=== PATIENT | female | born 1955 | race Caucasian/White ===

== ENCOUNTER 2020-11-12 10:10 | Emergency (ER) | payer SELFPAY ==
--- OUTSIDE RECORDS SUMMARY | 2020-11-12 10:13 | XMS REPORT | Continuity of Care Document ---
:1955 Author Organization [facility] t Address [address] [place] [address] Dr. Jerome. [address] [place] [address] Care Team Providers Name Role Phone Michelle Carpenter MD Primary Care Physician Alexi GONZALEZ B. Attending Clinician Jay Jay GONZALEZ RRenato Attending Clinician Carline ZUÑIGA Attending Clinician Unavailable Problems Condition Condition Condition Status Onset Resolution Last Treating Co mments Source Name Details Category Date Date Treatment Clinician Date Internal Internal Disease Active [place] derangemen derangemen 2-24 Me thodi t of left t of left 00:00: st shoulder shoulder 00 Adhesive Adhesive Disease Active [place] capsulitis capsulitis 2-24 Me thodi of left of left 00:00: st shoulder shoulder 00 Essential Essential Disease Active [place] ston hypertensi hypertensi 3-03 Me thodi on on 00:00: st 00 Hypertroph Hypertroph Disease Active 2017- [place] ic ic 1-10 [facility] cardiomyop cardiomyop 00:00: st athy athy 00 Allergies, Adverse Reactions, Alerts This patient has no known allergies or adverse reactions. Family History Family Member Diagnosis Comments Start Date Stop Date Source Natural brother Hypertension [place] [facility] Natural father Aneurysm [facility] thodist Natural mother Hypertension [place] [facility] Social History Social Habit Start Date Stop Date Quantity Comments Source Sex Assigned At F [facility] ethodist Exposure to Not sure [place] Metho dist SARS-CoV-2 (event) Tobacco use and 2018-05-02 2018-05-[address] [facility] ethodist exposure 00:00:00 00:00:00 Alcohol intake 2018-05-02 2018-05-02 Current drinker [place] [facility] 00:00:00 00:00:00 of alcohol (finding) Smoking Status Start Date Stop Date Source Never smoker Juan Carlos Method[facility] t Medications Ordered Filled Start Stop Current Ordering Indication Dosage Frequency Signature Comments Components Source Medication Medication Date Date Medication? Clinician (SIG) Name Name naproxen 2020- Yes 500mg Q.5D Take 1 [place] (NAPROSYN) 11-05 tablet Method i 500 MG 00:00: 23:59 ([address] tablet 00 :00 total) by mouth 2 (two) times a day with meals for 30 days. traMADoL 2020- Yes acute pain 50mg Q6H Take 1 [place] (Ultram) 50 11-05-06 tablet (50 M ethodi mg tablet 00:00: 23:59 mg total) st 00 :00 by mouth every 6 (six) hours as needed for moderate pain for up to 10 days .acute pain. atenoloL Yes Essential TAKE 1 [place] (TENORMIN) - hypertensio TABLET BY [facility] 50 MG 00:00: n MOUTH st tablet 00 EVERY DAY atenoloL 2019-09- No Essential TAKE 1 [place] (TENORMIN) 009-24 hypertensio TABLET BY [facility] 50 MG 00:00: 00:[address] tablet 00 :00 EVERY DAY atenoloL 2019- No Essential TAKE 1 [place] (TENORMIN) 05-22 hypertensio TABLET BY [facility] 50 MG 00:00: 00:[address] tablet 00 :00 EVERY DAY atenoloL 2019- No Essential TAKE 1 [place] (TENORMIN) 04-22 hypertensio TABLET BY [facility] 50 MG 00:00: 00:[address] tablet 00 :00 EVERY DAY atenoloL 2020- No Essential TAKE 1 [place] (TENORMIN) 03-31 hypertensio TABLET BY [facility] 50 MG 00:00: 00:[address] tablet 00 :00 EVERY DAY atenoloL 2019- No Essential TAKE 1 [place] (TENORMIN) 6-23 07-20 hypertensio TABLET BY [facility] 50 MG 00:00: 00:[address] tablet 00 :00 EVERY DAY atenoloL 2019- 2020- No Essential TAKE 1 [place] (TENORMIN) 02-10 hypertensio TABLET BY [facility] 50 MG 00:00: 00:[address] tablet 00 :00 EVERY DAY atenoloL 2019- 2020- No Essential TAKE 1 [place] (TENORMIN) 01-17 hypertensio TABLET BY [facility] 50 MG 00:00: 00:[address] tablet 00 :00 EVERY DAY atenoloL 2020- No Essential TAKE 1 [place] (TENORMIN) 12-25- hypertensio TABLET BY [facility] 50 MG 00:00: 00:[address] tablet 00 :00 EVERY DAY atenoloL 2019- 2020- No Essential TAKE 1 [place] (TENORMIN) 18 04-15 hypertensio TABLET BY [facility] 50 MG 00:00: 00:[address] tablet 00 :00 EVERY DAY FLUoxetine 2019- Yes 20mg QD Take 20 mg [place] (PROzac) 20 3-03 by mouth Meth [place] MG capsule 14:31: daily. st 58 atorvastati Yes 20mg QD Take 20 mg [place] n (LIPITOR) 3-03 by mouth Meth willard 20 MG 14:31: daily. st tablet 25 atenoloL 2020- No Essential 50mg QD Take 1 [place] (TENORMIN) 11-05-18 hypertensio tablet (50 [facility] 50 MG 00:00: 00:00 n mg total) st tablet 00 :00 by mouth daily. traMADol 2020- No [place] (ULTRAM) 50 8-14 02-24 [facility] mg tablet 00:00: 00:00 st 00 :00 valsartan 2018-0 Yes QD every [place] (DIOVAN) 40 7-02 evening. Meth [place] MG tablet 00:00: st 00 omeprazole Yes 20mg QD Take 20 mg [place] (PriLOSEC) 6-30 by mouth Metho di 20 MG 00:00: daily. st capsule 00 escitalopra 2019- No [place] m (LEXAPRO) 1-03 03-03 [facility] 10 MG 00:00: 00:00 st tablet 00 :00 Vital Signs Vital Name Observation Time Observation Value Comments Source Systolic blood 2019-11-13 14:30:00 156 mm[Hg] [place] [facility] pressure Diastolic blood 2019-11-13 14:30:00 69 mm[Hg] [place] [facility] pressure Heart rate 2019-11-13 14:30:00 56 /min Juan Carlos Rodriguez Body height 2019-11-13 14:30:00 157.5 cm [place] [facility] Body weight 2019-11-13 14:30:00 80.287 kg Juan Carlos Rodriguez BMI 2019-11-13 14:30:00 32.37 kg/m2 Juan Carlos Rodriguez Procedures Procedure Date / Time Performing Clinician Source Performed MD ARTHROCENTESIS 2020-11-05 10:50:00 Brittany Truong [facility]odist ASPIR&/INJ MAJOR JT/BURSA W/O US TTE COMPLETE, W CONTRAST, 2019-11-28 15:10:20 Serv[facility] W DOPPLER ([id number]) ECG 12-LEAD 2019-11-13 14:28:58 Servando Bower Meth odist Plan of Care Planned Activity Planned Date Details Comments Source Future Scheduled 2020-04-12 INFLUENZA VACCINE [place] [facility] Test 00:00:00 [code = INFLUENZA VACCINE] Future Scheduled 2006 BREAST CANCER [facility] thodist Test 00:00:00 SCREENING [code = BREAST CANCER SCREENING] Future Scheduled 2006 COLONOSCOPY SCREENING [place] [facility] Test 00:00:00 [code = COLONOSCOPY SCREENING] Future Scheduled 2006 SHINGLES VACCINES [place] [facility] Test 00:00:00 (#1) [code = SHINGLES VACCINES (#1)] Future Scheduled 1977 Screening for [facility] thodist Test 00:00:00 malignant neoplasm of cervix (procedure) [code = 074583254] Future Scheduled 1974 Hepatitis C screening [place] [facility] Test 00:00:00 (procedure) [code = 911948538] Future Scheduled 1972 COVID-19 VACCINE (1 [place] [facility] Test 00:00:00 of 2) [code = COVID-19 VACCINE (1 of 2)] Encounters Start End Encounter Admission Attending Care Care Encounter Source Date/Time Date/Time Type Type Clinicians Facility Department ID 2020-11-05 2020-11-05 Outpatient BRITTANY TRUONG [facility] [id number] [place] 00:00:00 00:00:[address] 2019-11-28 2019-11-28 Outpatient [facility] [id number] [place] 00:00:00 00:00:[address] 2019-11-13 2019-11-13 [id number] [place] 00:00:00 00:00:00 SERVANDO [address] Results Test Description Test Time Test Comments Results Result Sourc e Comments Shoulder left 2020-10-14 Brittany Truong MD [facility] ton cortisone 4 11/05/2020 12:08 [facility]ism injection 10:50:00 PMShoulder left cortisone injectionPerformed by: Brittany Truong MDAuthorized by: Brittany Truong MD Consent given by: PatientSite marked: the procedure site was marked Timeout: prior to procedure the correct patient, procedure, and site was verified Indications: PainLocation: ShoulderSite: L subacromial bursaPrep: patient was prepped and draped in usual sterile fashion Ultrasound guided?: No Needle size (left): 25 G (25 gauge)Left side approach: AnterolateralLeft side medications: 6 mg betamethasone acetate & sodium phosphate 6 mg/mL; 1 mL lidocaine 10 mg/mL (1 %)Left aspirate amount (ml): 0Patient tolerance (left): Patient tolerated the procedure well with no immediate complications ECG 12 lead 2019-11-13 22:02:45 Test Item Value Reference Range Interpretation Comme nts Ventricular rate (test code = 253) 58 Atrial rate (test code = 255) 58 MD interval (test code = 266) 148 QRSD interval (test code = 260) 74 QT interval (test code = 264) 420 QTC interval (test code = 265) 412 P axis 1 (test code = 267) 68 QRS axis 1 (test code = 268) 44 T wave axis (test code = 270) 4 EKG impression (test code = 273) Sinus bradycardia-Low voltage QRS- Borderline ECG-No previous ECGs available- Juan Carlos Rodriguez
[2020-11-12 11:59] LABS: Protime INR 0.97
[2020-11-12 12:01] LABS: ALT/SGPT 30 U/L (12-78); AST/SGOT 14 U/L (15-37); Albumin 3.4 g/dL (3.4-5.0); Alkaline Phosphatase 121 U/L (45-117); BUN Blood Urea Nitrogen 21 mg/dL (7-18); Bicarbonate 30 mmol/L (21-32); Bilirubin Direct 0.1 mg/dL (0-0.2); Bilirubin Total 0.4 mg/dL (0.2-1.0); Glucose Level 119 mg/dL (74-106); Magnesium 1.9 mg/dL (1.8-2.4); NT PRO-BNP 76 pg/mL (<125); Potassium 4.8 mmol/L (3.5-5.1); Protein, Total 7.1 g/dL (6.4-8.2); Sodium Level 139 mmol/L (136-145); Troponin (Emerg Dept Use Only) < 0.02 ng/mL (0.0-0.045)
--- NOTE | 2020-11-12 12:45 | RAD REPORT ---
EXAM DESCRIPTION: RAD - Chest Single View - 11/12/2020 11:52 am CLINICAL HISTORY: weakness Chest pain. COMPARISON: Chest Pa And Lat (2 Views) dated 01/19/2016; CHEST PA AND LAT 2 VIEW dated 07/28/2012 FINDINGS: Portable technique limits examination quality. The lungs are grossly clear. The heart is upper limit of normal in size. No displaced fractures. IMPRESSION: No acute intrathoracic process suspected.
[2020-11-12 13:12] LABS: Hematocrit 39.9 % (36.0-45.0); RBC Red Blood Cell Count 4.49 M/uL (3.86-4.86)
[2020-11-12 13:13] LABS: Absolute Lymphocytes (CBC) 2.4 K/uL (0.7-4.9); Basophils % 0.8 % (0-1.3); MPV 9.9 fL (7.6-11.3)
--- NOTE | 2020-11-12 14:03 | ER ---
Nurse's Notes [facility] Name: Johanna Wolfe Age: 65 yrs Sex: Female : 1955 Arrival Date: 11/12/2020 Time: 10:12 Bed 6 Private MD: Misael Carpenter C Diagnosis: Weakness;Lightheaded;Bradycardia, unspecified-Related to Atenolol Presentation: 11/12 10:24 Chief complaint: Patient states: Was at Dr. Carpenter's office 45 min [employer] and had a near ll1 syncope event. States she got dizzy, pale, clammy. Feels better now, just not fully back to normal. Coronavirus screen: Client denies travel out of the [place] in the last 14 days. At this time, the client does not indicate any symptoms associated with coronavirus-19. Ebola Screen: Patient denies travel to an Ebola-affected area in the 21 days before illness onset. Initial Sepsis Screen: Does the patient meet any 2 criteria? No. Patient's initial sepsis screen is negative. Does the patient have a suspected source of infection? No. Patient's initial sepsis screen is negative. Risk Assessment: Do you want to hurt yourself or someone else? Patient reports no desire to harm self or others. Onset of symptoms was November 12, 2020. 10:24 Method Of Arrival: Wheelchair ll1 10:24 Acuity: ARLENE 3 ll1 Historical: - Allergies: 10:23 No Known Allergies; ll1 - PMHx: 10:23 Hypertension; High Cholesterol; ll1 - PSHx: 10:23 Hysterectomy; ll1 - Immunization history:: Flu vaccine is not up to date. - Social history:: Smoking status: Patient denies any tobacco usage or history of. Screenin:05 Abuse screen: Denies threats or abuse. Denies injuries from another. Nutritional ss screening: No deficits noted. Tuberculosis screening: Never had TB. Fall Risk None identified. Assessment: 10:45 General: Appears in no apparent distress. comfortable, Behavior is calm, cooperative, ss Reports fatigue for after near syncopal episode that occurred at PCP's office. . Denies fever, feeling ill, chills. Pain: Denies pain. Neuro: Level of Consciousness is awake, alert, obeys commands, Oriented to person, place, time, situation, Driver Messenger are equal bilaterally Moves all extremities. Full function Gait is steady, Speech is normal, Facial symmetry appears normal, Pupils are PERRLA, Reports near syncopal episode that lasted moments while at doctor's office. Pt reports she feels better now, but still feels a little tired.. Denies blurred vision dizziness, numbness headache. Cardiovascular: Capillary refill < 3 seconds is brisk in bilateral fingers Patient's skin is warm and dry. Respiratory: Airway is patent Respiratory effort is even, unlabored, Respiratory pattern is regular, symmetrical. GI: No signs and/or symptoms were reported involving the gastrointestinal system. Patient currently denies diarrhea, nausea, vomiting. : No signs and/or symptoms were reported regarding the genitourinary system. EENT: Nares are clear Oral mucosa is moist. Derm: Skin is intact, is healthy with good turgor, Skin is dry, Skin is pink, warm \T\ dry. normal. Musculoskeletal: Circulation, motion, and sensation intact. Range of motion: intact in all extremities, Swelling absent. 11:40 Reassessment: Patient appears in no apparent distress at this time. Patient and/or ss family updated on plan of care and expected duration. Pain level reassessed. Patient is alert, oriented x 3, equal unlabored respirations, skin warm/dry/pink. 12:40 Reassessment: Patient appears in no apparent distress at this time. No changes from ss previously documented assessment. Patient and/or family updated on plan of care and expected duration. Pain level reassessed. Patient denies pain at this time. Patient states feeling better. Patient states symptoms have improved. 13:40 Reassessment: No changes from previously documented assessment. ss 14:40 Reassessment: Patient appears in no apparent distress at this time. No changes from ss previously documented assessment. Patient and/or family updated on plan of care and expected duration. Pain level reassessed. Vital Signs: 10:24 BP 141 / 71; Pulse 52; Resp 16; Temp 97.5; Pulse Ox 99% ; Weight 80.74 kg; Height 5 ft. ll1 2 in. (157.48 cm); Pain 0/10; 11:08 BP 147 / 71; Pulse 53; Resp 16; Pulse Ox 99% on R/A; mh5 12:00 BP 147 / 71 Supine; Pulse 50; ss 12:00 BP 126 / 72 Sitting; Pulse 56; ss 12:00 BP 134 / 66 Standing; Pulse 52; ss 10:24 Body Mass Index 32.56 (80.74 kg, 157.48 cm) ll1 ED Course: 10:12 Patient arrived in ED. am2 10:12 Misael Carpenter MD is Private Physician. am2 10:14 Aguilar Rogers MD is Attending Physician. kdr 10:23 Arm band placed on Patient placed in an exam room, on a stretcher. ll1 10:26 Triage completed. ll1 10:59 X-ray completed. Portable x-ray completed in exam room. Patient tolerated procedure je2 well. 11:05 Tammie Agarwal, MANNY is Primary Nurse. ss 11:05 Patient has correct armband on for positive identification. Placed in gown. Bed in low ss position. Call light in reach. 11:05 Inserted saline lock: 20 gauge in right antecubital area, using aseptic technique. ss Blood collected. 11:20 Pillow given. radiation monitor on. Pulse ox on. NIBP on. mh5 11:58 LFT's Sent. sv 11:58 CBC with Diff Sent. sv 11:58 Basic Metabolic Panel Sent. sv 13:17 XRAY Chest (1 view) Sent. sv 14:02 Misael Carpenter MD is Referral Physician. kdr 14:44 No provider procedures requiring assistance completed. IV discontinued, intact, ss bleeding controlled, No redness/swelling at site. Pressure dressing applied. 22:59 RAD In Process Unspecified. EDMS Administered Medications: No medications were administered Outcome: 14:03 Discharge ordered by . kdr 14:44 Discharged to home ambulatory. ss 14:44 Condition: good 14:44 Discharge instructions given to patient, Instructed on discharge instructions, follow up and referral plans. medication usage, Demonstrated understanding of instructions, follow-up care, medications. 14:45 Patient left the ED. Signatures: Dispatcher [employer] EDMS Fatoumata Mukherjee RN RN Aguilar Rogers MD MD kdr Tammie Agarwal RN RN Domonique Taylor 5 Adriana Daily am2 Lamin Jensen 2 Clau Virk RN RN 1
--- NOTE | 2020-11-12 14:03 | EDPHYS ---
Physician Documentation [facility] Name: Johanna Wolfe Age: 65 yrs Sex: Female : 1955 Arrival Date: 11/12/2020 Time: 10:12 Bed 6 Private MD: Misael Carpenter C ED Physician Aguilar Rogers HPI: 11/12 16:43 This 65 yrs old Female presents to ER via Wheelchair with complaints of feels kdr like passing out. 16:43 The patient ws sitting in Dr. Carpenter's office waiting for his arrival when she became kdr diaphoretic, weak and light headed. She was given some orange juice and began to feel better and was brought to the ED by POV. Onset: The symptoms/episode began/occurred suddenly, just prior to arrival. Severity of symptoms: At their worst the symptoms were mild moderate just prior to arrival, in the emergency department the symptoms have improved mildly. The patient has not experienced similar symptoms in the past, To the extent that she has had anything like this before, it was never this bad. The patient has been recently seen by a physician: Dr. Carpenter. Historical: - Allergies: 10:23 No Known Allergies; ll1 - PMHx: 10:23 Hypertension; High Cholesterol; ll1 - PSHx: 10:23 Hysterectomy; ll1 - Immunization history:: Flu vaccine is not up to date. - Social history:: Smoking status: Patient denies any tobacco usage or history of. ROS: 16:43 Constitutional: Negative for fever, chills, and weight loss, Eyes: Negative for injury, kdr pain, redness, and discharge, ENT: Negative for injury, pain, and discharge, Neck: Negative for injury, pain, and swelling, Cardiovascular: Negative for chest pain, palpitations, and edema, Respiratory: Negative for shortness of breath, cough, wheezing, and pleuritic chest pain, Abdomen/GI: Negative for abdominal pain, nausea, vomiting, diarrhea, and constipation, Back: Negative for injury and pain, : Negative for injury, bleeding, discharge, and swelling, MS/Extremity: Negative for injury and deformity, Skin: Negative for injury, rash, and discoloration, Psych: Negative for depression, anxiety, suicide ideation, homicidal ideation, and hallucinations, Allergy/Immunology: Negative for hives, rash, and allergies, Endocrine: Negative for neck swelling, polydipsia, polyuria, polyphagia, and marked weight changes, Hematologic/Lymphatic: Negative for swollen nodes, abnormal bleeding, and unusual bruising. 16:43 Neuro: Positive for altered mental status, dizziness, weakness, Negative for headache, loss of consciousness, numbness, seizure activity, speech changes, syncope, near syncope, tingling, tinnitus, tremor, visual changes. Exam: 11:21 ECG was reviewed by the Attending Physician. kdr 16:43 Constitutional: This is a well developed, well nourished patient who is awake, alert, kdr and in no acute distress. Head/Face: Normocephalic, atraumatic. Eyes: Pupils equal round and reactive to light, extra-ocular motions intact. Lids and lashes normal. Conjunctiva and sclera are non-icteric and not injected. Cornea within normal limits. Periorbital areas with no swelling, redness, or edema. Neck: Trachea midline, no thyromegaly or masses palpated, and no cervical lymphadenopathy. Supple, full range of motion without nuchal rigidity, or vertebral point tenderness. No Meningismus. Chest/axilla: Normal chest wall appearance and motion. Nontender with no deformity. No lesions are appreciated. Cardiovascular: Regular rate and rhythm with a normal S1 and S2. No gallops, murmurs, or rubs. Normal PMI, no JVD. No pulse deficits. Respiratory: Lungs have equal breath sounds bilaterally, clear to auscultation and percussion. No rales, rhonchi or wheezes noted. No increased work of breathing, no retractions or nasal flaring. Abdomen/GI: Soft, non-tender, with normal bowel sounds. No distension or tympany. No guarding or rebound. No evidence of tenderness throughout. Back: No spinal tenderness. No costovertebral tenderness. Full range of motion. Skin: Warm, dry with normal turgor. Normal color with no rashes, no lesions, and no evidence of cellulitis. MS/ Extremity: Pulses equal, no cyanosis. Neurovascular intact. Full, normal range of motion. Neuro: Awake and alert, GCS 15, oriented to person, place, time, and situation. Cranial nerves II-XII grossly intact. Motor strength 5/5 in all extremities. Sensory grossly intact. Cerebellar exam normal. Normal gait. Psych: Awake, alert, with orientation to person, place and time. Behavior, mood, and affect are within normal limits. Vital Signs: 10:24 BP 141 / 71; Pulse 52; Resp 16; Temp 97.5; Pulse Ox 99% ; Weight 80.74 kg; Height 5 ft. ll1 2 in. (157.48 cm); Pain 0/10; 11:08 BP 147 / 71; Pulse 53; Resp 16; Pulse Ox 99% on R/A; mh5 12:00 BP 147 / 71 Supine; Pulse 50; ss 12:00 BP 126 / 72 Sitting; Pulse 56; ss 12:00 BP 134 / 66 Standing; Pulse 52; ss 10:24 Body Mass Index 32.56 (80.74 kg, 157.48 cm) ll1 MDM: 14:03 Patient medically screened. kdr 16:43 Data reviewed: vital signs, nurses notes, lab test result(s), radiologic studies. kdr Counseling: I had a detailed discussion with the patient and/or guardian regarding: the historical points, exam findings, and any diagnostic results supporting the discharge/admit diagnosis, lab results, radiology results, the need for outpatient follow up. 11/12 10:23 Order name: Basic Metabolic Panel kdr 11/12 10:23 Order name: CBC with Diff kdr 11/12 10:23 Order name: LFT's kdr 11/12 10:23 Order name: Magnesium; Complete Time: 13:05 kdr 11/12 10:23 Order name: NT PRO-BNP; Complete Time: 13:05 kdr 11/12 10:23 Order name: PT-INR; Complete Time: 13:05 kdr 11/12 10:23 Order name: Troponin (emerg Dept Use Only); Complete Time: 13:05 kdr 11/12 10:23 Order name: XRAY Chest (1 view) kdr 11/12 10:23 Order name: EKG; Complete Time: 10:23 kdr 11/12 10:23 Order name: Basic Metabolic Panel; Complete Time: 13:05 EDMS 11/12 10:23 Order name: CBC with Automated Diff; Complete Time: 13:57 EDMS 11/12 10:23 Order name: Liver (Hepatic) Function; Complete Time: 13:05 EDMS 11/12 11:46 Order name: Glucose, Ancillary Testing; Complete Time: 13:05 EDMS 11/12 12:47 Order name: RAD [facility] 11/12 10:23 Order name: Cardiac monitoring; Complete Time: 11:51 [facility] 11/12 10:23 Order name: EKG - Nurse/Tech; Complete Time: : [facility] 11/12 10:23 Order name: IV Saline Lock; Complete Time: 11: [facility] 11/12 10:23 Order name: Labs collected and sent; Complete Time: : [facility] 11/12 10:23 Order name: O2 Per Protocol; Complete Time: [facility] 11/12 10:23 Order name: O2 Sat Monitoring; Complete Time: [facility] 11/12 10:23 Order name: Orthostatic Blood Pressure; Complete Time: 12:02 [facility] EC: Rate is 56 beats/min. Rhythm is regular, Sinus bradycardia with No ectopy. QRS [place] is kdr Normal. DC interval is normal. QRS interval is normal. QT interval is normal. Clinical impression: NSR w/ Non-specific ST/T Changes and Sinus bradycardia. Administered Medications: No medications were administered Disposition: 11/12/20 14:03 Discharged to Home. Impression: Weakness, Lightheaded, Bradycardia, unspecified - Related to Atenolol. - Condition is Stable. - Discharge Instructions: Bradycardia, Adult, Weakness, [id number]. - Medication Reconciliation Form, Thank You Letter form. - Follow up: Misael Carpenter MD; When: 1 week; Reason: If symptoms return, Further diagnostic work-up, Recheck today's complaints, Continuance of care, Re-evaluation by your physician. - Problem is new. - Symptoms have improved. - Notes: Stop Atenolol until you see Dr. Carpenter in follow up nest week. Call for an appointment Signatures: Dispatcher [employer] [facility] Aguilar Rogers MD MD [facility] Tammie Agarwal RN RN ss Clau Virk RN RN ll1 Corrections: (The following items were deleted from the chart) 14:45 14:03 11/12/2020 14:03 Discharged to Home. Impression: Weakness; Lightheaded; ss Bradycardia, unspecified - Related to Atenolol. Condition is Stable. Forms are Medication Reconciliation Form, Thank You Letter, Antibiotic Education, Prescription Opioid Use. Follow up: Misael Carpenter; When: 1 week; Reason: If symptoms return, Further diagnostic work-up, Recheck today's complaints, Continuance of care, Re-evaluation by your physician. Problem is new. Symptoms have improved. kdr
[2020-11-13 10:10] VITALS: BP 134/66; TEMP 97.5; O2SAT 99
== END 2020-11-12 14:45 | disposition home or self-care (01) ==
LOC: ER 10:10
DX: R00.1 Bradycardia, unspecified (principal); T44.7X5A Adverse effect of beta-adrenoreceptor antagonists, initial encounter; R42 Dizziness and giddiness; I10 Essential (primary) hypertension
CPT/HCPCS: 36415; 71045; 80048; 80076; 82947; 83735; 83880; 84484; 85025; 85610; 93005; 99284